=== PATIENT | female | born 1965 | race Caucasian/White ===

== ENCOUNTER → 2016-11-09 | Outpatient (CLI) | payer OTHER | LOC: RAD 09:28 | DX: Z12.31 Encounter for screening mammogram for malignant neoplasm of breast (principal) ==

== ENCOUNTER → 2016-11-27 | Outpatient (CLI) | payer OTHER ==
--- NOTE | ~2016-11-27 | EKG ---
[address] [place] [address] ELECTROCARDIOGRAM REPORT Name: SHUKRIBEAU MUKESH [id number] Admission: 11/27/16 Attend Phys: Harsha Casanova MD, F Discharge: Date of : 69 Report #: [id number] THIS REPORT FOR: //name// [facility] Test Date: 2016-11-27 Test Time: 09:58:24 Pat Name: BEAU WATT Department: Room: Gender: F Hospital Pharmacist: erasto mojica : 1965 Requested By: Harsha Casanova Order Number: [id number] MD: Ruddy Blanco Measurements Intervals Marion Rate: 58 P: 27 DC: 185 QRS: -14 QRSD: 111 T: 0 QT: 491 QTc: 483 Interpretive Statements Sinus rhythm Borderline T abnormalities, anterior leads No previous ECG available for comparison Electronically Signed On 11-27-2016 12:16:18 CDT by Ruddy Blanco [email or web address] <ELECTRONICALLY SIGNED> By: Ruddy Blanco MD 11/27/16 1216 [id number] [id number] MD SONIA Garcia
[2016-11-27 11:28] LABS: ABSOLUTE NEUTROPHILS 5.4 thou/uL (1.4-8.2); BASOPHILS 0.8 % (0.0-2.0); EOSINOPHILS 2.6 % (0.0-3.0); HEMATOCRIT 41.7 % (37.0-47.0); HEMOGLOBIN 13.9 gm/dL (12.0-15.0); LYMPHOCYTES 28.3 % (24.0-44.0); MCH 28.3 pg (26.0-34.0); MCHC 33.5 g/dL (28.0-37.0); MCV 84.6 fL (80.0-100.0); MONOCYTES 6.3 % (1.0-8.0); PLATELET COUNT 242 thou/uL (150-400); RBC 4.93 mil/uL (4.20-5.00); RDW 13.3 % (10.5-14.5); WBC 8.7 thou/uL (4.0-11.0)
[2016-11-27 11:33] LABS: MANUAL DIFF NO
[2016-11-27 11:36] LABS: CALCIUM 8.9 mg/dL (8.5-10.1); CREATININE 0.6 mg/dL (0.6-1.0); POTASSIUM 3.9 mmol/L (3.5-5.1)
[2016-11-27 11:41] LABS: ALBUMIN 2.5 g/dL (3.4-5.0); TOTAL BILIRUBIN 0.8 mg/dL (<0.1-1.0); TOTAL PROTEIN 7.9 g/dL (6.4-8.2)
== END ==
LOC: CV 06:51
PROVIDERS: Surgery
DX: Z01.818 Encounter for other preprocedural examination (principal); R07.9 Chest pain, unspecified

== ENCOUNTER 2017-01-14 05:31 | Inpatient (IN) | payer OTHER ==
[2017-01-14] VITALS (8 sets, daily range): BP systolic 117–158; BP diastolic 69–913
[~2017-01-14] VITALS: Ht 172.7 cm; Wt 127.9 kg
--- NOTE | ~2017-01-14 | O ---
[facility] [place] [address] OPERATIVE REPORT Name: BEAU WATT Room #: 418-P [facility] IN M.R.#: [id number] Admission: 01/14/17 Attend Phys: Harsha Casanova MD, F Discharge: 01/15/17 Date of : 69 Report #: [id number] THIS REPORT FOR: //name// CC: Jose Casanova MD DATE OF SERVICE: 01/14/2017 SURGEON: Harsha Casanova M.D. ORTHOTIC ASSISTANT: Mayte Metzger M.D. and AVNI Johnson. PREOPERATIVE DIAGNOSES: 1. Morbid obesity (body mass index 43.6). 2. Hypertension. POSTOPERATIVE DIAGNOSES: 1. Morbid obesity (body mass index 43.6). 2. Hypertension. PROCEDURE: Laparoscopic sleeve gastrectomy with EGD. ANESTHESIA: General endotracheal anesthesia and local anesthetic. ESTIMATED BLOOD LOSS: 10 mL. SPECIMEN: Lateral stomach. COMPLICATIONS: None appreciated. INDICATIONS FOR PROCEDURE: This is a 51-year-old female patient who is morbidly obese with a body mass index of 44.3 at her last visit. She has a maximum weight of 305 pounds and has had issues with her weight for as long as she can remember, even during her childhood. She has tried numerous weight loss programs, plans, specialized diets, exercises and prescriptions/over [id number]-[id number] medications. Any amount of weight she has lost, she has quickly regained plus additional weight after stopping the modality. The most weight she has lost is 50 pounds, which she promptly regained. She has associated comorbidities including hypertension, borderline hypercholesterolemia and obstructive sleep apnea, although she does not use or require a CPAP. She also has gastroesophageal reflux. The patient has been cleared from a multidisciplinary standpoint. She presents today for laparoscopic sleeve gastrectomy with EGD. OPERATIVE FINDINGS: On EGD, the patient's esophagus was normal down to the GE junction and Z-line, measured at 38 cm from the teeth. The stomach and duodenum [address] [address] OPERATIVE REPORT Name: BEAU WATT Room #: 418-P [facility] IN M.R.#: [id number] Admission: 01/14/17 Attend Phys: Harsha Casanova MD, F Discharge: 01/15/17 Date of : 69 Report #: [id number] were normal down to the third portion with no polyps, masses, diverticula, or ulcers. On retroflexion of the scope within the antrum of the stomach, a hiatal hernia was not appreciated. Laparoscopically, the patient had an enlarged stomach and fatty liver with no tom steatohepatitis. No other significant intra-abdominal pathology was identified. After creation of the sleeve, there was no evidence for a staple line leak. The staple line was located 1 cm lateral to the GE junction proximally and 4 cm proximal to the pylorus. There was at least 2.5-3 cm of distance between the incisura and staple line. At the conclusion of the operation, the sponge, needle, and instrument counts were correct. The excised stomach held 1000 mL of fluid on the back table. No other significant intraabdominal pathology was identified. Upon creation of the sleeve, the staple line was measured at 4 cm from the pylorus. A 3 cm distance was present between the stapler and incisura. After removal of the stomach from the patient's body, it was filled with 1 liter of normal saline. Upon return to the abdominal cavity, the staple line was hemostatic. During removal of the endoscope, there was no bleeding within the stomach and there was no evidence for leak on the leak test described below. At the conclusion of the operation, the sponge, needle and instrument counts were correct. DESCRIPTION OF PROCEDURE IN DETAIL: After the benefits and risks of the procedure were explained to the patient which include but are not limited to risks of bleeding, infection, postoperative pain, postoperative expectations and risks of DVT and pulmonary embolus, informed consent was obtained. The patient was identified in the preoperative holding area. The patient was given IV antibiotics as documented in the chart in line with SCIP protocol. The patient was then taken to the operating room and was placed in the supine position. The patient was given IV sedation and was intubated without incident. SCDs were placed on the patient's bilateral lower extremities prior to induction of anesthesia. The patient had been placed in the modified low lying dorsal lithotomy position in stirrups on the beanbag. The beanbag and the patient were taped to the bed to secure the patient. A time-out was then performed to correctly identify the patient and procedure. An orogastric tube was placed by anesthesia. A bite block was placed and the fiberoptic EGD scope was passed into the patient's oropharynx, down the esophagus, into the stomach, and into the third portion of the duodenum. Findings are as noted above. The scope was slowly withdrawn into the antrum and the scope was retroflexed. The hiatus was visualized. The scope was then straightened and the end of the gastroscope was placed at the pylorus. The stomach was decompressed with the scope. The patient's abdomen was then prepped and draped in the standard sterile fashion with surgical prep. Local anesthetic was infiltrated into the skin and [address] [address] OPERATIVE REPORT Name: BEAU WATT Room #: 418-P [facility] IN ..#: [id number] Admission: 01/14/17 Attend Phys: Harsha Casanova MD, F Discharge: 01/15/17 Date of : 69 Report #: [id number] subcutaneous tissue in the left supraumbilical area where a sharp #15-blade scalpel was used to make a 5-mm incision. The 5-mm Visiport was placed intraperitoneally with the 5-mm 0-degree angled laparoscope. Pneumoperitoneum was then achieved with insufflation of carbon dioxide to 15 mmHg. A 5-mm 30-degree angled laparoscope was then inserted. The 15-mm port was placed in the right supraumbilical area after local anesthetic was infiltrated into the skin and subcutaneous tissue and an appropriately sized incision was made. Two additional 5 mm ports were placed in the left abdomen after local anesthetic was infiltrated and incisions were made. All ports were placed under direct visualization. The patient was then placed in reverse Trendelenburg position. Local anesthetic was infiltrated into the skin and subcutaneous tissue in the subxiphoid area and a 5-mm incision was made through which a 5-mm obturator was passed into the abdominal cavity through the fascia to create a passageway for the Luli liver retractor. The retractor was placed to retract the liver anteriorly. The retractor was held in place with the [employer] Engineer apparatus. All abdominal adhesions were then taken down with blunt dissection, sharp dissection and judicious use of the ultrasonic dissector. The gastrosplenic ligament and short gastric vessels were then divided using the ultrasonic dissector with appropriate traction. Bleeding points were made hemostatic with the ultrasonic dissector. Dissection was carried proximally up to the left wil of the diaphragm. The distal end point of dissection was then measured at 4 cm proximal to the pylorus. The short gastric vessels and gastrocolic ligaments were dissected to that level. The stomach was then rotated medially to visualize any posterior attachments/adhesions to the stomach. The adhesions were dissected with a combination of sharp dissection and use of the ultrasonic dissector. The endoscope was then slightly withdrawn to place it along the lesser curvature of the stomach. Suction was applied to the orogastric tube which was then removed, leaving the endoscope in place as a bougie. The gastric sleeve was then created using the endoscope as a 34 Peruvian bougie. Two black loads of the powered endoscopic RAHEEL stapler buttressed with Renetta-Strips were used to staple and divide the stomach 4 cm proximal to the pylorus. Additional green loads buttressed with Renetta-strips were used to staple off the remainder of the stomach using the endoscope as the bougie. Care was taken to ensure that greater than 3 cm of space was present between the incisura and the staple line. The stomach was fully transected and placed in the right upper quadrant of the abdomen for later removal. Tisseel was applied to the entire length of the staple line with the Duplospray aerosolizer to fully ensure hemostasis. A leak test was performed next. The sleeve was insufflated with the endoscope which was slowly withdrawn. No air bubbles were seen in the Tisseel laparoscopically. Endoluminally, no bleeding was seen. The stomach was fully decompressed and the scope was slowly withdrawn. The Luli liver retractor [facility] [address] [place] [address] OPERATIVE REPORT Name: BEAU WATT Room #: 418-P [facility] IN M.R.#: [id number] Admission: 01/14/17 Attend Phys: Harsha Casanova MD, F Discharge: 01/15/17 Date of : 69 Report #: [id number] was then loosened from the [employer] apparatus and it was removed without difficulty. The stomach was then removed from the patient's body through the 15-mm port under direct visualization. A small amount stretching of the fascia was required to create an opening large enough for removal of the stomach. After its removal, the 15-mm port site fascial opening was closed with an 0-PDS suture using the Noam-Nestor laparoscopic fascial closure device. All ports were removed after the abdominal cavity was desufflated. The fascial suture was tied. Interrupted subcuticular 4-0 Monocryl sutures and Dermabond were used to close all skin incisions. The patient tolerated the procedure well. The patient was awakened, extubated and taken to the recovery room in stable condition with no apparent intraoperative complications. <ELECTRONICALLY SIGNED> By: Harsha Casanova MD, FACS 01/15/17 2038 1132 1231 Harsha Casanova MD, FACS /nt
--- NOTE | ~2017-01-14 | S ---
[facility] [place] [address] SURGICAL PATH RPT PROCEDURE Name: LAURA JONES Room #: 418-P DIS IN M.R.#: [id number] Admission: 01/14/17 Date of : 69 Discharge: 01/15/17 Report #: [id number] Path Case #: [id number] PATHOLOGY REPORT COLLECTION DATE: 01/14/2017 RECEIVED DATE: 01/14/2017 SUBMITTING PHYS: Dr. Harsha Casanova OTHER PHYS: Dr. Mayte Cantu SPECIMEN(S) RECEIVED: A.Gastric sleeve * * * * * * * * * * * * FINAL DIAGNOSIS: Gastric sleeve, partial sleeve gastrectomy: - Moderate chronic active gastritis. - No intestinal metaplasia, atrophy or dysplasia. - Helicobacter pylori immunohistochemical stain pending. COMMENT: Helicobacter pylori immunohistochemical stain is ordered on block A1 due to the histologic features. The findings of this case will be reported in an addendum to follow. (IUV:mml; d/t: 01/18/2017) PATHOLOGIST: Deanne Parsons M.D. REPORT ELECTRONICALLY SIGNED BY: Deanne Parsons M.D. DATE/TIME: 01/18/2017 15:33 * * * * * * * * * * * * GROSS PATHOLOGY: The specimen is received in formalin, labeled "Laura Jones, gastric sleeve". Received is a partial gastrectomy specimen with a stapled margin of resection measuring 24.2 x 5.1 x 2.5 cm in greatest dimensions. The serosal surface is pink-simon to pink-calvo, smooth and glistening in appearance. Opening the specimen reveals a light simon, cerebriform- to granular-appearing mucosa with normal architectural folds. No distinct nodules or lesions are noted grossly. The specimen is submitted representatively in cassette A1 through A3. (CAA; 01/15/2017) CLINICAL HISTORY: Morbid obesity [facility] [place] [address] SURGICAL PATH RPT PROCEDURE Name: LAURA JONES Room #: 418-P [facility] IN .R.#: [id number] Admission: 01/14/17 Date of : 69 Discharge: 01/15/17 Report #: [id number] Path Case #: [id number] INITIAL CPT CODE(S): A; 92927, 17939 Professional services performed [address] [facility] [address], [place] [address] Technical services performed by [facility] at [address] [place] [address], [facility] [address] [address]. [facility] [address] [place] [address] PHONE: [phone] DIRECTOR: Jose E Pollack M.D. * * * END OF REPORT * * *
[~2017-01-14 05:31] MED LIST: CENTRUM SILVER1 EAC4 PO; LISINOPRIL2.5 MG PO; ROPINIROLE HCL0.5 MG PO
[2017-01-15 04:19] VITALS: BP 119/74
[2017-01-15 05:37] LABS: ABSOLUTE NEUTROPHILS 11.4 thou/uL (1.4-8.2); BASOPHILS 0.2 % (0.0-2.0); EOSINOPHILS 0.2 % (0.0-3.0); HEMOGLOBIN 11.6 gm/dL (12.0-15.0); LYMPHOCYTES 14.6 % (24.0-44.0); MCH 28.7 pg (26.0-34.0); MCHC 33.2 g/dL (28.0-37.0); MCV 86.6 fL (80.0-100.0); MONOCYTES 7.3 % (1.0-8.0); PLATELET COUNT 219 thou/uL (150-400); POLYS 77.7 % (36.0-66.0); RBC 4.05 mil/uL (4.20-5.00); RDW 13.2 % (10.5-14.5); WBC 14.7 thou/uL (4.0-11.0)
[2017-01-15 05:38] LABS: MANUAL DIFF NO
[2017-01-15 05:48] LABS: CALCIUM 8.1 mg/dL (8.5-10.1); CREATININE 0.8 mg/dL (0.6-1.0); POTASSIUM 3.2 mmol/L (3.5-5.1)
[2017-01-15 09:08] VITALS: BP 135/72
[2017-01-15 12:12] VITALS: BP 135/72
== END 2017-01-15 13:25 | disposition home or self-care (01) | DRG 621 ==
LOC: TBA 05:31 → OR 05:31 → TBA 05:32 → OR 10:53 → 4E 10:54 → OR 12:18 → 4E 01-15 13:25
PROVIDERS: Surgery
PROC: 0DJ08ZZ Inspection of Upper Intestinal Tract, Via Natural or Artificial Opening Endoscopic (ICD-10-PCS; principal; 2017-01-14)
PROC: 0DB64Z3 Excision of Stomach, Percutaneous Endoscopic Approach, Vertical (ICD-10-PCS; principal; 2017-01-14)
DX: E66.01 Morbid (severe) obesity due to excess calories (principal); I10 Essential (primary) hypertension; G25.81 Restless legs syndrome; K21.9 Gastro-esophageal reflux disease without esophagitis; Z68.41 Body mass index [BMI] 40.0-44.9, adult; Z88.8 Allergy status to other drugs, medicaments and biological substances; Z88.6 Allergy status to analgesic agent; Z79.899 Other long term (current) drug therapy; Z90.49 Acquired absence of other specified parts of digestive tract; Z90.710 Acquired absence of both cervix and uterus
CPT/HCPCS: 10084; 50010; 50101; 50222; 50249; 50386; 50555; 50739; 50740; 50962; 51437; 51489; 52182; 52265; 53307; 53311; 54022; 54118; 56462; 56525; 56526; 57092; 62110; 62900; 70005

== ENCOUNTER 2017-02-14 19:43 | Emergency (ER) | payer OTHER ==
[~2017-02-14] VITALS: Ht 177.8 cm; Wt 120.2 kg
[2017-02-14] MEDS ORDERED: AMOXICILLI250 MG/51 PO (19:58)
[2017-02-14] MEDS ORDERED: CLARITHROM250 MG/5 M PO (19:59)
[2017-02-14 20:14] LABS: ABSOLUTE NEUTROPHILS 4.9 thou/uL (1.4-8.2); BASOPHILS 0.8 % (0.0-2.0); EOSINOPHILS 4.4 % (0.0-3.0); HEMOGLOBIN 13.3 gm/dL (12.0-15.0); LYMPHOCYTES 32.8 % (24.0-44.0); MCH 29.1 pg (26.0-34.0); MCV 85.6 fL (80.0-100.0); PLATELET COUNT 200 thou/uL (150-400); RBC 4.56 mil/uL (4.20-5.00); RDW 13.3 % (10.5-14.5); WBC 8.9 thou/uL (4.0-11.0)
[2017-02-14 20:16] LABS: MANUAL DIFF NO
[2017-02-14 20:17] LABS: CALCIUM 8.8 mg/dL (8.5-10.1); CREATININE 0.8 mg/dL (0.6-1.0); POTASSIUM 3.6 mmol/L (3.5-5.1)
[2017-02-14 20:25] LABS: ALBUMIN 3.9 g/dL (3.4-5.0); TOTAL BILIRUBIN 0.4 mg/dL (<0.1-1.0); TOTAL PROTEIN 7.4 g/dL (6.4-8.2)
== END 2017-02-14 22:12 | disposition home or self-care (01) ==
LOC: ER 19:43
PROVIDERS: Physician Assistant
DX: G89.18 Other acute postprocedural pain (principal); R10.11 Right upper quadrant pain; I10 Essential (primary) hypertension; K21.9 Gastro-esophageal reflux disease without esophagitis; F10.99 Alcohol use, unspecified with unspecified alcohol-induced disorder; Z90.3 Acquired absence of stomach [part of]; Z90.710 Acquired absence of both cervix and uterus; Z90.49 Acquired absence of other specified parts of digestive tract; Z98.890 Other specified postprocedural states; Z88.6 Allergy status to analgesic agent